=== PATIENT | female | born 1970 | race Hispanic/Latino ===

== ENCOUNTER 2021-04-23 08:56 | Inpatient (IN) | payer OTHER ==
[~2021-04-23] VITALS: Ht 167.6 cm; Wt 83.5 kg
[2021-04-23] MEDS ORDERED: SODIUM CHLORIDE 0.9% 1000ML 1,000 ML IV STA (09:09)
[2021-04-23] MEDS ORDERED: SODIUM CHLORIDE 0.9% 1000ML 1,000 ML ONE (09:26)
[2021-04-23 09:34] LABS: BASOPHILS % 0.2 % (0.0-1.0); EOSINOPHILS % 0.2 % (0.0-6.0); HEMATOCRIT 44.4 % (34.2-44.1); HEMOGLOBIN 15.2 g/dL (12.0-16.0); LYMPHOCYTES # (AUTO) 1.2 (1.0-3.2); LYMPHOCYTES % 8.6 % (18.0-39.1); MEAN CORPUSCULAR HEMOGLOBIN 30.3 pg (28-32); MEAN CORPUSCULAR HGB CONC 34.2 g/dL (31-35); MEAN CORPUSCULAR VOLUME 88.6 fL (81-99); MONOCYTES # (AUTO) 0.7 (0.2-0.8); MONOCYTES % 5.5 % (4.4-11.3); NEUTROPHILS # (AUTO) 11.5 (2.1-6.9); NEUTROPHILS % 84.8 % (38.7-80.0); PLATELET COUNT 248 x10e3/uL (140-360); RED BLOOD COUNT 5.01 x10e6/uL (3.6-5.1); RED CELL DISTRIBUTION WIDTH 14.6 % (11.7-14.4)
[2021-04-23] MEDS ORDERED: ONDANSETRON HCL INJ 2MG/ML 2ML 2 MG/ML VIAL IV ONE (10:00)
[2021-04-23] MEDS ORDERED: KETOROLAC TROMETHAMINE 30 MG/ML VIAL IV ONE (10:00)
[2021-04-23 10:13] LABS: BACTERIA,URINE MANY /HPF; CLARITY,URINE CLOUDY (CLEAR); COLOR,URINE STRAW (YELLOW); EPITHELIAL CELLS,URINE MANY /LPF; KETONES,URINE NEGATIVE (NEGATIVE); LEUKOCYTE ESTERASE ,URINE NEGATIVE (NEGATIVE); MUCUS,URINE FEW (RARE); NITRITE,URINE NEGATIVE (NEGATIVE); PROTEIN,URINE DIPSTICK TRACE (NEGATIVE); RBC,URINE >50 /HPF (0-5); URINE UROBILINOGEN 0.2 mg/dL (0.2 - 1)
[2021-04-23 10:16] LABS: ALBUMIN/GLOBULIN RATIO 1.1 (0.8-2.0); ANION GAP 15.7 mmol/L (8-16); CREATININE, SERUM 0.81 mg/dL (0.57-1.11); MAGNESIUM 1.8 MG/DL (1.3-2.1); POTASSIUM 3.7 mmol/L (3.5-5.1)
[2021-04-23 10:22] LABS: CREATINE KINASE MB 1.1 ng/mL (0-5.0)
[2021-04-23] MEDS ORDERED: CEFTRIAXONE 1 GM in SODIUM CHLORIDE 0.9% 50ML 50 ML IV ONE (11:00)
[2021-04-23] MEDS ORDERED: SODIUM CHLORIDE 0.9% 1000ML 1,000 ML IV SCH (11:45)
[2021-04-23] MEDS ORDERED: ONDANSETRON HCL INJ 2MG/ML 2ML 2 MG/ML VIAL IV PRN ×2 (11:45→13:45)
[2021-04-23] MEDS ORDERED: Morphine 4mg Syringe 4 MG/ML INJ IV PRN (11:45)
[2021-04-23] MEDS ORDERED: PIPERACILLIN/TAZOBACTAM 3.375 GM in SODIUM CHLORIDE 0.9% 50ML 50 ML IV SCH (12:00)
[2021-04-23] MEDS ORDERED: BUPIVACAINE HCL 0.5% INJ 30 ML VIAL INJ ONE (13:17)
[2021-04-23] MEDS ORDERED: ACETAMINOPHEN 325 MG TAB PO PRN (13:45)
[2021-04-23] MEDS ORDERED: HYDROMORPHONE 1MG/1ML INJ IV PRN (13:45)
[2021-04-23] MEDS ORDERED: HYDROCODONE/APAP 5MG-325MG TAB PO PRN (13:45)
[2021-04-23] MEDS ORDERED: IOPAMIDOL 370 MG/ML 200 ML INFUS..BTL INJ ONE (14:08)
[2021-04-23] MEDS ORDERED: SODIUM CHLORIDE 0.9% 50ML 50 ML ONE (14:08)
[2021-04-23] MEDS ORDERED: SUGAMMADEX SODIUM 200 MG/2 ML VIAL IV ONE (14:12)
[2021-04-23] MEDS ORDERED: PROMETHAZINE HCL (IM) 25 MG/ML VIAL IM ONE (14:23)
[2021-04-23] MEDS ORDERED: MEPERIDINE HCL INJ 25 MG/ML VIAL ONE ×2 (14:35→14:49)
[2021-04-23 15:30] VITALS: BP 115/78
[2021-04-23] MEDS ORDERED: AMLODIPINE BESYL5 MG PO (15:52)
[2021-04-23] MEDS ORDERED: LOSARTAN POTAS100 MG PO (15:52)
[2021-04-23 16:04] VITALS: BP 115/78
[2021-04-23] MEDS ORDERED: FENTANYL CITRATE/PF 100MCG/2 ML INJ ONE (17:34)
[2021-04-23] MEDS ORDERED: MIDAZOLAM HCL 2 MG/2 ML VIAL ONE (17:34)
[2021-04-23] MEDS ORDERED: NEOSTIGMINE 1 MG/ML 10ML VIAL ONE (17:52)
[2021-04-23] MEDS ORDERED: PROPOFOL IV EMULSION 10 MG/ML 20 ML VIAL ONE (17:52)
[2021-04-23] MEDS ORDERED: DEXAMETHASONE SOD PHOS INJ 4 MG/ML SDV ONE (17:52)
[2021-04-23] MEDS: SODIUM CHLORIDE 0.9% 1000ML 1,000 ML IV SCH ×2 (17:52→23:46)
[2021-04-23] MEDS ORDERED: SEVOFLURANE INHAL SOLN 250 ML PEN BTL ONE (17:52)
[2021-04-23] MEDS ORDERED: ATROPINE SULFATE 1 MG/ML VIAL ONE (17:52)
[2021-04-23] MEDS: PIPERACILLIN/TAZOBACTAM 3.375 GM in SODIUM CHLORIDE 0.9% 50ML 50 ML IV SCH ×2 (17:52→23:46)
[2021-04-23] MEDS ORDERED: ROCURONIUM BROMIDE 10 MG/ML 5ML VIAL IV ONE (17:52)
[2021-04-23] MEDS ORDERED: LIDOCAINE HCL 2% LOCAL INJ 5 ML SDV VIAL INJ ONE (17:52)
[2021-04-23] MEDS ORDERED: POVIDONE IODINE 0.05% 0.05 % ML PO ONE (17:52)
[2021-04-23] MEDS ORDERED: KETOROLAC TROMETHAMINE 30 MG/ML VIAL ONE (17:52)
[2021-04-23] MEDS ORDERED: ONDANSETRON HCL INJ 2MG/ML 2ML 2 MG/ML VIAL ONE (17:52)
[2021-04-23 20:00] VITALS: BP 124/77
[2021-04-24] VITALS: BP 105/76
[2021-04-24 04:00] VITALS: BP 117/82
[2021-04-24] MEDS: PIPERACILLIN/TAZOBACTAM 3.375 GM in SODIUM CHLORIDE 0.9% 50ML 50 ML IV SCH (05:31)
[2021-04-24] MEDS ORDERED: ULTRACET TABLE1 EACH PO (06:18)
[2021-04-24 06:25] LABS: BASOPHILS % 0.3 % (0.0-1.0); EOSINOPHILS % 0.1 % (0.0-6.0); HEMATOCRIT 36.7 % (34.2-44.1); HEMOGLOBIN 12.1 g/dL (12.0-16.0); LYMPHOCYTES # (AUTO) 1.6 (1.0-3.2); LYMPHOCYTES % 13.4 % (18.0-39.1); MEAN CORPUSCULAR HEMOGLOBIN 30.1 pg (28-32); MEAN CORPUSCULAR VOLUME 91.3 fL (81-99); MONOCYTES # (AUTO) 0.9 (0.2-0.8); MONOCYTES % 7.6 % (4.4-11.3); NEUTROPHILS # (AUTO) 9.1 (2.1-6.9); NEUTROPHILS % 78.1 % (38.7-80.0); PLATELET COUNT 205 x10e3/uL (140-360); RED BLOOD COUNT 4.02 x10e6/uL (3.6-5.1)
[2021-04-24 07:06] LABS: ALBUMIN 3.4 g/dL (3.5-5.0); ALBUMIN/GLOBULIN RATIO 1.1 (0.8-2.0); ANION GAP 15.5 mmol/L (8-16); CALCIUM 8.3 mg/dL (8.4-10.2); CREATININE, SERUM 0.8 mg/dL (0.57-1.11); POTASSIUM 3.5 mmol/L (3.5-5.1)
[2021-04-24 08:38] VITALS: BP 124/86
[2021-04-24 08:42] VITALS: BP 124/86
== END 2021-04-24 09:30 | disposition home or self-care (01) | DRG 343 ==
LOC: ER 09:22 → ERHOLD 11:35 → MED/SURG 15:25
PROVIDERS: ADMIT Surgery; ATTEND Surgery
PROC: 0DTJ4ZZ Resection of Appendix, Percutaneous Endoscopic Approach (ICD-10-PCS; principal; 2021-04-23 13:11)
DX: K35.80 Unspecified acute appendicitis (principal); Z20.822 Contact with and (suspected) exposure to COVID-19; I10 Essential (primary) hypertension
CPT/HCPCS: 36415; 74177; 80053; 81001; 81025; 82150; 82550; 82553; 83690; 83735; 84484; 85025; 87086; 88304; 93005; 99284; J0461; J0696; J1100; J1885; J2001; J2175; J2250; J2405; J2543; J2550; J2710; J3010; J7030; Q9967; U0002

== ENCOUNTER 2023-07-01 22:55 | Emergency (ER) | payer BC, OTHER ==
[~2023-07-01] VITALS: Ht 167.6 cm; Wt 83.5 kg
[~2023-07-01 22:55] MED LIST: AMLODIPINE BESYL5 MG PO; LOSARTAN POTAS100 MG PO; ULTRACET TABLE1 EACH PO
[2023-07-01 23:03] VITALS: O2SAT 100
[2023-07-01] MEDS ORDERED: PREDNISONE 20 MG TAB PO STA (23:04)
[2023-07-01] MEDS ORDERED: FAMOTIDINE 20 MG TAB PO STA (23:04)
[2023-07-01] MEDS ORDERED: HYDROXYZINE HCL 25 MG TAB PO STA (23:04)
[2023-07-02] MEDS ORDERED: PEPCID20 MG PO (00:01)
[2023-07-02] MEDS ORDERED: PREDNISONE20 MG PO (00:01)
[2023-07-02] MEDS ORDERED: HYDROXYZINE HCL25 MG PO (00:01)
== END 2023-07-02 00:07 | disposition home or self-care (01) ==
LOC: ER 22:58
DX: R21 Rash and other nonspecific skin eruption (principal); I10 Essential (primary) hypertension
CPT/HCPCS: 99283; J3410; J7512